=== PATIENT | male | born 1950 | race Caucasian/White ===

== ENCOUNTER 2022-06-21 07:53 | Day surgery (SDC) | payer MEDICARE ==
[~2022-06-21] VITALS: Ht 182.9 cm; Wt 92.5 kg
[2022-06-21] VITALS (12 sets, daily range): BP systolic 87–114; BP diastolic 58–87
[2022-06-21] MEDS ORDERED: PROP10TA10 PO (08:18)
[2022-06-21] MEDS ORDERED: FLEC100T PO (08:18)
[2022-06-21] MEDS ORDERED: ALLO100T PO (08:18)
[2022-06-21] MEDS ORDERED: APIX5TAB3 PO (08:18)
[2022-06-21] MEDS ORDERED: normal saline 1000ml 1,000 ML IV SCH (08:20)
[2022-06-21] MEDS ORDERED: fentaNYL/PF 50MCG/1 ML 2ML syringe IV ONE (08:20)
[2022-06-21] MEDS ORDERED: MIDAZolam 1mg/ml 10ml vial IV ONE (08:20)
[2022-06-21 08:55] LABS: BASOPHILS % (AUTO) 0.4 % (0-1); EOSINOPHILS # (AUTO) 0.2 X10'3 (0-0.9); EOSINOPHILS % (AUTO) 3.1 % (0-6); HEMATOCRIT 44.1 % (42.0-52.0); HEMOGLOBIN 15.7 g/dl (14.0-17.9); LYMPHOCYTES # (AUTO) 1.6 X10'3 (1.1-4.8); LYMPHOCYTES % (AUTO) 25.7 % (21-51); MEAN CORPUSCULAR HEMOGLOBIN 33.4 PG (27.0-31.0); MEAN CORPUSCULAR HGB CONC 35.5 g/dL (33.0-36.5); MEAN CORPUSCULAR VOLUME 93.9 FL (78-98); MEAN PLATELET VOLUME 7.6 FL (7.4-10.4); MONOCYTES # (AUTO) 0.6 X10'3 (0-0.9); MONOCYTES % (AUTO) 9.5 % (2-12); NEUTROPHILS # (AUTO) 3.9 X10'3 (1.8-7.7); NEUTROPHILS % (AUTO) 61.3 % (42-75); PLATELET COUNT 202 X10'3 (140-440); RED CELL DISTRIBUTION WIDTH 14.4 % (11.5-14.5); WHITE BLOOD COUNT 6.4 X10'3 (4.5-11.0)
[2022-06-21 09:06] LABS: ALBUMIN 3.6 G/DL (3.4-5.0); ANION GAP 7 (8-16); BLOOD UREA NITROGEN 21 MG/DL (7-18); BUN/CREATININE RATIO 21.2 (5.4-32.0); CALCIUM 8.9 MG/DL (8.5-10.1); CHLORIDE 107 MMOL/L (99-107); CREATININE 0.99 MG/DL (0.60-1.10); GLUCOSE 113 MG/DL (70-104); MAGNESIUM 2.1 MG/DL (1.5-2.4); POTASSIUM 3.9 MMOL/L (3.5-5.1); SODIUM 141 MMOL/L (135-145); TOTAL CARBON DIOXIDE 27.3 MMOL/L (24-32); eGFR 75 ML/MIN
== END 2022-06-21 10:45 | disposition home or self-care (01) ==
LOC: SSTAY O 07:53
PROVIDERS: ATTEND Internal Medicine Cardiovascular Disease
DX: I48.91 Unspecified atrial fibrillation (principal); F17.210 Nicotine dependence, cigarettes, uncomplicated; M10.9 Gout, unspecified; Z79.899 Other long term (current) drug therapy; G43.909 Migraine, unspecified, not intractable, without status migrainosus; Z79.01 Long term (current) use of anticoagulants; Z98.890 Other specified postprocedural states; Z82.49 Family history of ischemic heart disease and other diseases of the circulatory system; Z80.1 Family history of malignant neoplasm of trachea, bronchus and lung
CPT/HCPCS: 36415; 80048; 83735; 85025; 85610; 92960; 93005; J2250; J3010; J7030; A4620

== ENCOUNTER 2023-09-21 08:32 | Day surgery (SDC) | payer MEDICARE ==
[2023-09-14 15:40] LABS: BILIRUBIN,URINE NEGATIVE (Neg); CLARITY,URINE CLEAR (Clear); COLOR,URINE YELLOW (Yellow); GLUCOSE, URINE NEGATIVE (Neg); KETONES,URINE NEGATIVE (Neg); LEUKOCYTE ESTERASE ,URINE NEGATIVE (Neg); NITRITES, URINE NEGATIVE (Neg); OCCULT BLOOD,URINE NEGATIVE (Neg); PH,URINE 5.5 (4.8-8.0); PROTEIN,URINE NEGATIVE (Neg); UROBILINOGEN,URINE 0.2 E.U/dL (0.2-1.0)
[2023-09-14 15:46] LABS: UA COLLECTION TYPE CLN CATCH MIDSTREAM
[2023-09-14 15:50] LABS: BASOPHILS % (AUTO) 0.8 % (0-1); EOSINOPHILS # (AUTO) 0.2 X10'3 (0-0.9); EOSINOPHILS % (AUTO) 3.9 % (0-6); LYMPHOCYTES # (AUTO) 1.8 X10'3 (1.1-4.8); LYMPHOCYTES % (AUTO) 29.6 % (21-51); MEAN CORPUSCULAR HEMOGLOBIN 30.3 PG (27.0-31.0); MEAN CORPUSCULAR HGB CONC 32.8 g/dL (33.0-36.5); MEAN CORPUSCULAR VOLUME 92.5 FL (78-98); MONOCYTES # (AUTO) 0.6 X10'3 (0-0.9); MONOCYTES % (AUTO) 9.2 % (2-12); NEUTROPHILS # (AUTO) 3.5 X10'3 (1.8-7.7); NEUTROPHILS % (AUTO) 56.5 % (42-75); PRE OP HEMATOCRIT 44.3 % (42.0-52.0); PRE OP HEMOGLOBIN 14.5 g/dL (14.0-17.9); PRE OP PLATELET COUNT 246 X10'3 (140-440); PRE OP WHITE BLOOD COUNT 6.2 10'3 (4.8-10.8); RED BLOOD COUNT 4.78 X10'6 (4.70-6.10); RED CELL DISTRIBUTION WIDTH 15.5 % (11.5-14.5)
[2023-09-14 15:53] LABS: ALBUMIN 3.4 G/DL (3.4-5.0); ALBUMIN/GLOBULIN RATIO 0.9 (1.1-1.5); ALKALINE PHOSPHATASE 73 IU/L (46-116); BLOOD UREA NITROGEN 21 MG/DL (7-18); BUN/CREATININE RATIO 18.3 (10.0-20.0); CALCIUM 9.1 MG/DL (8.5-10.1); CHLORIDE 102 MMOL/L (99-107); CREATININE 1.15 MG/DL (0.60-1.10); PRE OP ALT 35 U/L (30-65); PRE OP ANION GAP 7 (8-16); PRE OP AST 28 U/L (10-37); PRE OP BILIRUB, TOTAL 0.4 MG/DL (0.0-1.0); PRE OP GLUCOSE 110 MG/DL (70-104); PRE OP POTASSIUM 4.3 MMOL/L (3.4-5.1); PRE OP SODIUM 139 MMOL/L (135-145); TOTAL CARBON DIOXIDE 30.5 MMOL/L (24-32); TOTAL PROTEIN 7.2 G/DL (6.4-8.2); eGFR 62 ML/MIN
[2023-09-21] VITALS (9 sets, daily range): BP systolic 95–123; BP diastolic 54–81; PULSE 51–55; RESP 10–16; TEMP 98.4; O2SAT 79–100
[~2023-09-21] VITALS: Ht 182.9 cm; Wt 93.0 kg
[2023-09-21] MEDS: famotidine 20mg tablet PO ONE (05:30)
[2023-09-21] MEDS: DOCUMENT DATE & TIME OF BETA-BLOCKER PO ONE (05:30)
[2023-09-21] MEDS: cefazolin 2gm/D5W 100mL 100 ML IV ONE (05:30)
[2023-09-21] MEDS: ringers solution, lacted 1,000 ML IV SCH (05:30)
[~2023-09-21 08:32] MED LIST: ALLO100T PO; APIX5TAB3 PO; FLEC100T PO; PROP10TA10 PO
[2023-09-21] MEDS ORDERED: proCHLORperazine 10 MG/2 ml inj IV PRN (12:05)
[2023-09-21] MEDS ORDERED: ringers solution, lacted 1,000 ML IV SCH (12:05)
[2023-09-21] MEDS ORDERED: labetalol 20mg/4ml (5mg/ml) syringe IV PRN (12:05)
[2023-09-21] MEDS ORDERED: enalaprilat dihydrate 2.5mg/2ml vial IV PRN (12:05)
[2023-09-21] MEDS ORDERED: meperidine/PF 25mg/ml syringe IV PRN ×2 (12:05)
[2023-09-21] MEDS ORDERED: ondansetron/PF 4mg/2ml inj IV PRN (12:05)
[2023-09-21] MEDS ORDERED: morphine 2 MG/ML inj. syringe IV PRN (12:05)
[2023-09-21] MEDS ORDERED: glycopyrrolate 0.2mg/ml inj ONE (13:27)
[2023-09-21] MEDS ORDERED: sevoflurane 250ml liquid IH ONE (13:27)
[2023-09-21] MEDS ORDERED: neostigmine methylsulfate 1 MG/ML 10ml vial ONE (13:27)
[2023-09-21] MEDS ORDERED: acetaminophen 1000 MG/100ml vial IV ONE (13:27)
[2023-09-21] MEDS ORDERED: midazolam 1 mg/ML 2ml injection ONE (13:35)
[2023-09-21] MEDS ORDERED: fentaNYL/PF 50MCG/1 ML 2ML syringe ONE (13:35)
[2023-09-21] MEDS ORDERED: propofol inj 20 ML IV ONE (13:42)
[2023-09-21] MEDS ORDERED: dexamethasone sod phosphate 4mg/ml inj. ONE (13:46)
[2023-09-21] MEDS ORDERED: rocuronium 10mg/ml inj IV ONE (13:46)
[2023-09-21] MEDS ORDERED: ondansetron/PF 4mg/2ml inj ONE (13:47)
[2023-09-21] MEDS ORDERED: BUPIVAcaine/PF 2.5mg/ml (0.25%) 10ml vial ONE ×2 (14:02→14:03)
[2023-09-21] MEDS: BUPIVAcaine/PF 2.5mg/ml (0.25%) 10ml vial IJ ONE (14:09)
[2023-09-21] MEDS ORDERED: meperidine/PF 25mg/ml syringe ONE (14:29)
[2023-09-21] MEDS: meperidine/PF 25mg/ml syringe IV PRN (15:20)
[2023-09-21] MEDS: morphine 4 MG/ML inj SYRINge IV PRN (15:28)
[2023-09-21] MEDS: HYDROcodone/acetaminophen 10/325mg tab PO ONE (15:50)
== END 2023-09-21 16:02 | disposition home or self-care (01) ==
LOC: PAS 08:32
PROVIDERS: ATTEND Surgery
DX: K42.0 Umbilical hernia with obstruction, without gangrene (principal); I48.91 Unspecified atrial fibrillation; E55.9 Vitamin D deficiency, unspecified; M10.9 Gout, unspecified; M19.042 Primary osteoarthritis, left hand; M19.041 Primary osteoarthritis, right hand; Z79.899 Other long term (current) drug therapy; Z98.890 Other specified postprocedural states; Z72.89 Other problems related to lifestyle; Z80.1 Family history of malignant neoplasm of trachea, bronchus and lung; Z82.49 Family history of ischemic heart disease and other diseases of the circulatory system
CPT/HCPCS: 36415; 49594; 80053; 81003; 82948; 85025; 93005; C1781; J0131; J0690; J1100; J2175; J2250; J2270; J2405; J2704; J2710; J3010; J3490; J7030; J7120; Z7506; Z7508; Z7512; A4215; A4618; A7000